=== PATIENT | male | born 1965 | race African-American/Black ===

== ENCOUNTER 2017-10-08 07:01 | Emergency (ER) | payer SELFPAY ==
[~2017-10-08] VITALS: Ht 175.3 cm; Wt 134.0 kg
[2017-10-08 07:28] VITALS: BP 154/95
== END 2017-10-08 12:37 | disposition home or self-care (01) ==
LOC: ER 07:45
DX: J18.9 Pneumonia, unspecified organism (principal); R03.0 Elevated blood-pressure reading, without diagnosis of hypertension; I51.9 Heart disease, unspecified; G47.30 Sleep apnea, unspecified; F12.90 Cannabis use, unspecified, uncomplicated; Z95.0 Presence of cardiac pacemaker
CPT/HCPCS: 71020; 99284

== ENCOUNTER 2018-10-19 18:55 | Emergency (ER) | payer OTHER ==
[~2018-10-19] VITALS: Ht 180.3 cm; Wt 147.3 kg
[2018-10-19 19:30] VITALS: BP 105/69
== END 2018-10-19 20:10 | disposition left against medical advice (07) ==
LOC: ER 18:55
DX: R00.2 Palpitations (principal); Z53.21 Procedure and treatment not carried out due to patient leaving prior to being seen by health care provider

== ENCOUNTER 2019-07-19 17:21 | Emergency (ER) | payer MEDICAID, OTHER ==
[~2019-07-19] VITALS: Ht 180.3 cm; Wt 160.0 kg
[2019-07-19 18:35] VITALS: BP 139/80
== END 2019-07-19 18:53 | disposition home or self-care (01) ==
LOC: ER 17:21
DX: R25.2 Cramp and spasm (principal); I11.9 Hypertensive heart disease without heart failure; F12.10 Cannabis abuse, uncomplicated; M79.641 Pain in right hand; Z87.891 Personal history of nicotine dependence; Z95.0 Presence of cardiac pacemaker
CPT/HCPCS: 99281

== ENCOUNTER 2025-04-06 09:20 | Emergency (ER) | payer OTHER ==
[~2025-04-06] VITALS: Ht 180.3 cm; Wt 134.0 kg
[2025-04-06 09:26] VITALS: O2SAT 99
[2025-04-06 10:00] LABS: CHLORIDE 103 mEq/L (98-107); POTASSIUM 4.2 mEq/L (3.5-5.1); SODIUM 142 mEq/L (136-145)
[2025-04-06 10:01] LABS: CALCIUM 8.8 mg/dL (8.7-10.4); CARBON DIOXIDE 31 mEq/L (21-32)
[2025-04-06 10:03] LABS: BASOPHILS % 0.4 % (0.0-2.0); EOSINOPHILS % 1.4 % (0.0-5.0); HEMOGLOBIN. 13.6 g/dL (14.0-18.0); LYMPHOCYTES % 46.5 % (20.0-50.0); MEAN CORPUSCULAR HEMOGLOBIN 30.4 pg (28.0-32.0); MEAN CORPUSCULAR HGB CONC 33.1 g/dL (31.0-37.0); MEAN PLATELET VOLUME 7.7 fl (7.4-10.4); MONOCYTES % 7.7 % (2.0-8.0); PLATELET 193 x1000/uL (130-400); RED BLOOD CELL COUNT 4.46 mill/uL (4.7-6.1); RED CELL DISTRIBUTION WIDTH 13.9 % (11.6-14.6); WHITE BLOOD COUNT 4.6 x1000/uL (4.5-11.0)
[2025-04-06 10:06] LABS: GLUCOSE 122 mg/dL (70-105); UREA NITROGEN BLOOD 9 mg/dL (9-23)
[2025-04-06 10:07] LABS: TROPONIN I HIGH SENSITIVITY 4 ng/L (3.0-53)
[2025-04-06] MEDS ORDERED: ASPIRIN 81MG EC TABLET PO SCH (11:30)
[2025-04-06 11:31] VITALS: BP 149/91; PULSE 62; RESP 19; TEMP 36.8; O2SAT 98
== END 2025-04-06 11:33 | disposition left against medical advice (07) ==
LOC: ER 09:20 → EDBEDREQ 11:29 → ER 11:33
DX: R07.89 Other chest pain (principal); F12.90 Cannabis use, unspecified, uncomplicated; I25.10 Atherosclerotic heart disease of native coronary artery without angina pectoris; I10 Essential (primary) hypertension; E78.5 Hyperlipidemia, unspecified; Z98.890 Other specified postprocedural states; Z95.0 Presence of cardiac pacemaker
CPT/HCPCS: 36415; 71045; 80048; 84484; 85025; 93005; 99285